=== PATIENT | male | born 1965 | race Caucasian/White ===

== ENCOUNTER 2021-07-10 19:33 | Inpatient (IN) ==
[2021-07-10] MEDS ORDERED: ACETAMINOPHEN 325 MG TABLET PO PRN (20:52)
[2021-07-10] MEDS ORDERED: GLUCAGON 1 MG VIAL IM PRN (20:52)
[2021-07-10] MEDS ORDERED: ASPIRIN CHEW 81 MG TABLET PO STA (20:57)
[2021-07-10] MEDS ORDERED: DEXTROSE 10% 250 ML BAG IV PRN (21:01)
[2021-07-10] MEDS: INSULIN REGULAR 100 UNIT/ML SUBCUT SCH (22:42)
[2021-07-10] MEDS: ENOXAPARIN 100 MG/ML SYRINGE SUBCUT SCH (23:19)
[2021-07-10] MEDS: NITROGLYCERIN 2% OINT 1 INCH/GM PACK TOP SCH (23:20)
[2021-07-11 02:35] LABS: Basophils % 0.2 % (0.0-0.8); Hematocrit 44.8 VOL% (42.0-52.0); Hemoglobin 15.1 GM/DL (14.0-18.0); Immature Granulocytes % 0.9 %; Immature Granulocytes Absolute 0.11 #; Mean Corpuscular HGB Conc 33.7 GM/DL (32-36); Mean Corpuscular Volume 86.5 FL (87-102); Mean Platelet Volume 9.3 FL (9.6-12.0); Monocytes % 5.9 % (1.7-12.7); Platelet Count 232 T/CUMM (130-400); Red Blood Count 5.18 MC/CUMM (3.8-5.5); Red Cell Distribution Width 12.7 % (9.3-17.3); White Blood Count 12.2 T/CUMM (4-12)
[2021-07-11 02:51] LABS: Albumin 2.9 G/DL (3.4-5.0); Calcium 8.5 MG/DL (8.5-10.1); Osmolality,Calculated 286.1 MOS/KG (273-304); Risk Ratio 4.34; Total Protein 6.7 G/DL (6.4-8.2); VLDL Cholesterol 42.2 MG/DL
[2021-07-11] MEDS: NITROGLYCERIN 2% OINT 1 INCH/GM PACK TOP SCH (05:49)
[2021-07-11] MEDS: METOPROLOL TARTRATE 25 MG TABLET PO SCH ×3 (07:03→23:02)
[2021-07-11 08:25] LABS: CKMB % 5.2 %; High Sensitive Troponin I* 6712.2 ng/L (0-78)
[2021-07-11] MEDS: INSULIN REGULAR 100 UNIT/ML SUBCUT SCH ×4 (08:57→23:02)
[2021-07-11] MEDS ORDERED: NITROGLYCERIN DRIP 50 MG/250 ML BOTTLE IV ONE (09:38)
[2021-07-11] MEDS ORDERED: LIDOCAINE 1% 20 ML VIAL ONE (09:38)
[2021-07-11] MEDS ORDERED: HEPARIN/NACL 0.9% 2 UNITS/ML 2,000 UNIT/1,000 ML BAG IV ONE (09:38)
[2021-07-11] MEDS ORDERED: VERAPAMIL 5 MG/2 ML VIAL ONE (09:39)
[2021-07-11] MEDS ORDERED: diphenhydrAMINE CAP 50 MG CAPSULE PO ONE (09:53)
[2021-07-11] MEDS ORDERED: DIAZEPAM 5 MG TABLET PO ONE (09:53)
[2021-07-11] MEDS ORDERED: diphenhydrAMINE CAP 50 MG CAPSULE ONE (09:54)
[2021-07-11] MEDS: ENOXAPARIN 100 MG/ML SYRINGE SUBCUT SCH (10:11)
[2021-07-11] MEDS ORDERED: MIDAZOLAM 2 MG/2 ML VIAL ONE (10:22)
[2021-07-11] MEDS ORDERED: fentaNYL 100 MCG/2 ML VIAL ONE (10:22)
[2021-07-11] MEDS ORDERED: ONDANSETRON 4 MG/2 ML VIAL IV PRN (10:56)
[2021-07-11] MEDS ORDERED: DEXTROSE 10% 250 ML BAG IV PRN (10:56)
[2021-07-11] MEDS ORDERED: NITROGLYCERIN DRIP 50 MG/250 ML BOTTLE IV PRN (11:03)
[2021-07-11] MEDS: SODIUM CHLORIDE 0.9% 1,000 ML IV SCH ×2 (11:57→18:33)
[2021-07-11] MEDS ORDERED: ZALEPLON 5 MG CAPSULE PO PRN (19:40)
[2021-07-11] MEDS ORDERED: CLORAZEPATE 3.75 MG TABLET PO PRN (19:41)
[2021-07-11] MEDS ORDERED: ROSUVASTATIN 20 MG TABLET PO SCH (21:00)
[2021-07-11] MEDS: HEPARIN DRIP 25,000 UNITS/500 ML PREMIX IV SCH (22:49)
[2021-07-11] MEDS: ROSUVASTATIN 20 MG TABLET PO SCH (23:01)
[2021-07-11] MEDS: ASCORBIC ACID 500 MG TABLET PO SCH (23:01)
[2021-07-12] MEDS: SODIUM CHLORIDE 0.9% 1,000 ML IV SCH (04:27)
[2021-07-12 06:50] LABS: Basophils % 0.3 % (0.0-0.8); Eosinophils % 0.3 % (0.00-10.9); Hematocrit 41.1 VOL% (42.0-52.0); Hemoglobin 13.8 GM/DL (14.0-18.0); Immature Granulocytes % 0.8 %; Immature Granulocytes Absolute 0.08 #; Lymphocytes % 20.4 % (21.2-54.2); Mean Corpuscular HGB Conc 33.6 GM/DL (32-36); Mean Corpuscular Volume 87.1 FL (87-102); Monocytes % 9.9 % (1.7-12.7); Neutrophils % 68.3 % (38.7-73.9); Platelet Count 185 T/CUMM (130-400); Red Blood Count 4.72 MC/CUMM (3.8-5.5); Red Cell Distribution Width 13.2 % (9.3-17.3); White Blood Count 9.8 T/CUMM (4-12)
[2021-07-12 07:20] LABS: Calcium 7.9 MG/DL (8.5-10.1); Osmolality,Calculated 285.3 MOS/KG (273-304); Potassium 3.2 MMOL/L (3.5-5.1)
[2021-07-12] MEDS: INSULIN REGULAR 100 UNIT/ML SUBCUT SCH ×4 (08:21→20:38)
[2021-07-12] MEDS: ASPIRIN EC 81 MG TABLET PO SCH (08:25)
[2021-07-12] MEDS: ASCORBIC ACID 500 MG TABLET PO SCH ×2 (08:26→20:38)
[2021-07-12] MEDS: DAPAGLIFLOZIN 10 MG TABLET PO SCH (08:26)
[2021-07-12] MEDS: METOPROLOL TARTRATE 25 MG TABLET PO SCH ×2 (08:27→20:38)
[2021-07-12] MEDS ORDERED: POTASSIUM CHLORIDE 20 MEQ TABLET PO ONE (08:50)
[2021-07-12] MEDS ORDERED: HEPARIN 5,000 UNIT/1 ML VIAL IV ONE (13:19)
[2021-07-12] MEDS: HEPARIN DRIP 25,000 UNITS/500 ML PREMIX IV SCH ×2 (17:52→19:45)
[2021-07-12] MEDS: ROSUVASTATIN 20 MG TABLET PO SCH (20:38)
[2021-07-13 05:59] LABS: Basophils # 0.1 10*3/uL (0.0-0.2); Basophils % 0.5 % (0.0-0.8); Eosinophils % 0.4 % (0.00-10.9); Hematocrit 43.3 VOL% (42.0-52.0); Hemoglobin 14.1 GM/DL (14.0-18.0); Immature Granulocytes % 0.9 %; Immature Granulocytes Absolute 0.08 #; Lymphocytes # 1.9 10*3/uL (1.4-4.0); Lymphocytes % 21.1 % (21.2-54.2); Mean Corpuscular HGB Conc 32.6 GM/DL (32-36); Mean Corpuscular Volume 88.2 FL (87-102); Mean Platelet Volume 9.4 FL (9.6-12.0); Neutrophils % 67.1 % (38.7-73.9); Platelet Count 188 T/CUMM (130-400); Red Blood Count 4.91 MC/CUMM (3.8-5.5); Red Cell Distribution Width 13.1 % (9.3-17.3); White Blood Count 9.1 T/CUMM (4-12)
[2021-07-13 06:30] LABS: Calcium 8.2 MG/DL (8.5-10.1); Osmolality,Calculated 283.3 MOS/KG (273-304); Potassium 3.6 MMOL/L (3.5-5.1)
[2021-07-13 06:58] LABS: Albumin 2.4 G/DL (3.4-5.0); Bilirubin,Total 1.1 MG/DL (0.20-1.00); Calcium 8.2 MG/DL (8.5-10.1); Osmolality,Calculated 283.3 MOS/KG (273-304); Potassium 3.5 MMOL/L (3.5-5.1); Total Protein 6.2 G/DL (6.4-8.2)
[2021-07-13 08:28] LABS: ABG Base Excess -1.7 MMOL/L (-2.5-2.5); ABG HCO3 22.9 MMOL/L (20-26); ABG Oxygen Saturation 97.2 % (95-100); ABG PCO2 33.7 MM HG (35-48); ABG PO2 88.4 MM HG (80-95); ABG TCO2 18.6 MMOL/L (23-27); Allen Test Positive; Pt O2 Delivery Device Room Air
[2021-07-13] MEDS ORDERED: POTASSIUM CHLORIDE 20 MEQ TABLET PO ONE (08:50)
[2021-07-13] MEDS: METOPROLOL TARTRATE 25 MG TABLET PO SCH ×2 (08:50→21:47)
[2021-07-13] MEDS: ASCORBIC ACID 500 MG TABLET PO SCH ×2 (08:50→21:47)
[2021-07-13] MEDS: INSULIN REGULAR 100 UNIT/ML SUBCUT SCH ×4 (08:51→21:46)
[2021-07-13] MEDS: DAPAGLIFLOZIN 10 MG TABLET PO SCH (08:51)
[2021-07-13] MEDS: ASPIRIN EC 81 MG TABLET PO SCH (08:51)
[2021-07-13] MEDS: CHLORHEXIDINE 4% SOLN 118 ML BOTTLE TOP SCH ×3 (08:52→21:57)
[2021-07-13] MEDS: CHLORHEXIDINE 0.12% ORAL RINSE 60 ML BOTTLE SWISH/SPIT SCH ×2 (08:58→21:46)
[2021-07-13] MEDS: SODIUM CHLORIDE 0.9% 1,000 ML IV SCH ×2 (12:45→12:50)
[2021-07-13] MEDS: HEPARIN DRIP 25,000 UNITS/500 ML PREMIX IV SCH (15:30)
[2021-07-13] MEDS: ROSUVASTATIN 20 MG TABLET PO SCH (21:46)
[2021-07-14] MEDS ORDERED: VANCOMYCIN 500 MG VIAL ONE (04:16)
[2021-07-14] MEDS ORDERED: PAPAVERINE 60 MG/2 ML VIAL ONE (04:16)
[2021-07-14] MEDS ORDERED: VANCOMYCIN 1,000 MG VIAL ONE (04:16)
[2021-07-14] MEDS: HEPARIN DRIP 25,000 UNITS/500 ML PREMIX IV SCH (04:33)
[2021-07-14] MEDS: VANCOMYCIN INJ 1,000 MG in SODIUM CHLORIDE 0.9% 250 ML IV ONE ×2 (05:16→10:08)
[2021-07-14] MEDS ORDERED: LACTATED RINGERS 1,000 ML IV ONE (06:01)
[2021-07-14] MEDS ORDERED: MIDAZOLAM 10 MG/2 ML VIAL ONE ×2 (06:01→08:11)
[2021-07-14] MEDS ORDERED: SODIUM CHLORIDE 0.9% 100 ML IV ONE (06:01)
[2021-07-14] MEDS ORDERED: SODIUM CHLORIDE 0.9% 250 ML IV ONE (06:01)
[2021-07-14] MEDS ORDERED: CALCIUM CHLORIDE 1,000 MG/10 ML VIAL IV ONE (06:01)
[2021-07-14] MEDS ORDERED: SODIUM CHLORIDE 0.9% 1,000 ML IV ONE (06:01)
[2021-07-14] MEDS ORDERED: VECURONIUM 10 MG VIAL IV ONE ×3 (06:01→08:12)
[2021-07-14] MEDS ORDERED: LIDOCAINE 2% 5 ML VIAL ONE ×2 (06:01→11:21)
[2021-07-14] MEDS ORDERED: ETOMIDATE 40 MG/20 ML VIAL IV ONE (06:01)
[2021-07-14] MEDS ORDERED: SUFentanil 250 MCG/5 ML AMP ONE (06:02)
[2021-07-14] MEDS ORDERED: AMINOCAPROIC ACID 5,000 MG/20 ML VIAL ONE (06:02)
[2021-07-14] MEDS ORDERED: PHENYLEPHRINE 10 MG/1 ML VIAL IV ONE ×2 (06:05→09:54)
[2021-07-14] MEDS ORDERED: ePHEDrine 50 MG/ML VIAL ONE (06:42)
[2021-07-14] MEDS ORDERED: LIDOCAINE 2% TOP JELLY 20 ML VIAL INTRAURETH ONE ×2 (07:15→07:24)
[2021-07-14 07:47] LABS: ABG Base Excess -4.2 MMOL/L (-2.5-2.5); ABG Oxygen Saturation 99.6 % (95-100); ABG PCO2 40.2 MM HG (35-48); ABG PH 7.336 (7.35-7.45); ABG TCO2 18.3 MMOL/L (23-27); Glucose Heart Surgery 157 MG/DL (74-106); Hematocrit Heart Surgery 47.2 PERCENT (42-52); Hemoglobin Heart Surgery 15.4 G/DL (14.0-18.0); Ionized Calcium Arterial 1.16 MMOL/L (1.21-1.46); PCO2 Patient Temp Arterial 40.2 MMHG; PH Patient Temp Arterial 7.336; Patient Temperature 37 CELCIUS; Potassium Heart/CVR 3.7 MMOL/L (3.5-5.1); Sodium Heart/CVR 140 MMOL/L (135-145)
[2021-07-14 08:35] LABS: Bilirubin,Urine Negative (Negative); Blood, Urine Negative (Negative); Glucose,Urine (UA) >=500 mg/dL (Negative); Ketones,Urine 20 mg/dL (Negative); Mucus,Urine Few /LPF (Occasional); Nitrite,Urine Negative (Negative); Protein,Urine Negative; RBC,Urine 2 /HPF (0-4); Squamous Epithelial Cell,Urine Occasional /HPF (0-10); Urine Appearance CLEAR (Clear); Urine Color Yellow (Yellow); Urine Specific Gravity 1.026 (1.001-1.035); Urine Urobilinogen < 2.0 EU/DL (<2.0)
[2021-07-14 09:28] LABS: Hematocrit Heart Surgery 31.9 PERCENT (42-52); Hemoglobin Heart Surgery 10.3 G/DL (14.0-18.0); PCO2 Patient Temp Venous 34.6 MM HG; PH Patient Temp Venous 7.379; PO2 Patient Temp Venous 36.4 MM HG; Potassium Heart/CVR 4.2 MMOL/L (3.5-5.1); VBG Base Excess -4.1 MEQ/L (0-4); VBG HCO3 20.7 MEQ/L (24-28); VBG Oxygen Saturation 77.8 %; VBG PCO2 40.1 MMHG (41-51); VBG PH 7.337; VBG PO2 44.9 MMHG (17-40); VBG Total CO2 19.6 MMOL/L
[2021-07-14] MEDS ORDERED: HEPARIN/NACL 0.9% 2 UNITS/ML 1,000 UNIT/500 ML BAG IV ONE (09:44)
[2021-07-14 09:58] LABS: Hematocrit Heart Surgery 34.6 PERCENT (42-52); Hemoglobin Heart Surgery 11.2 G/DL (14.0-18.0); PCO2 Patient Temp Venous 33.1 MM HG; PH Patient Temp Venous 7.378; PO2 Patient Temp Venous 37.5 MM HG; Potassium Heart/CVR 4.2 MMOL/L (3.5-5.1); VBG Oxygen Saturation 79.3 %; VBG PCO2 38.2 MMHG (41-51); VBG PH 7.335; VBG PO2 46.2 MMHG (17-40); VBG Total CO2 18.5 MMOL/L
[2021-07-14] MEDS ORDERED: POTASSIUM CHLORIDE RIDER 20 MEQ/100 ML PREMIX IV ONE (10:00)
[2021-07-14] MEDS ORDERED: NITROPRUSSIDE 50 MG/2 ML VIAL ONE (10:00)
[2021-07-14] MEDS ORDERED: SODIUM BICARBONATE 50 MEQ/50 ML VIAL IV ONE ×2 (10:00→11:23)
[2021-07-14] MEDS ORDERED: PHENYLEPHRINE DRIP 40 MG/250 ML PREMIX IV ONE (10:01)
[2021-07-14] MEDS ORDERED: CALCIUM CHLORIDE 1,000 MG/10 ML SYRINGE IV ONE (10:01)
[2021-07-14] MEDS ORDERED: ALBUMIN 5% 12.5 GM/250 ML VIAL IV ONE ×2 (10:03→10:04)
[2021-07-14] MEDS ORDERED: LIDOCAINE 100 MG/5 ML SYRINGE ONE (10:03)
[2021-07-14] MEDS ORDERED: ATROPINE 1 MG/10 ML SYRINGE ONE (10:03)
[2021-07-14] MEDS ORDERED: EPINEPHrine 1 MG/10 ML SYRINGE ONE (10:04)
[2021-07-14 10:29] LABS: Hematocrit Heart Surgery 36.1 PERCENT (42-52); Hemoglobin Heart Surgery 11.7 G/DL (14.0-18.0); PCO2 Patient Temp Venous 37.2 MM HG; PH Patient Temp Venous 7.323; PO2 Patient Temp Venous 43.3 MM HG; Potassium Heart/CVR 4.5 MMOL/L (3.5-5.1); VBG Base Excess -6.2 MEQ/L (0-4); VBG Oxygen Saturation 75.5 %; VBG PCO2 37.2 MMHG (41-51); VBG PH 7.323; VBG PO2 43.3 MMHG (17-40); VBG Total CO2 17.4 MMOL/L
[2021-07-14] MEDS ORDERED: MINERAL OIL/PETROLATUM OPH OINT 3.5 GM TUBE ONE (10:41)
[2021-07-14] MEDS ORDERED: SEVOFLURANE 1 UNIT/15 MINUTE INH ONE (10:42)
[2021-07-14 11:13] LABS: ABG Base Excess -6.6 MMOL/L (-2.5-2.5); ABG HCO3 19.1 MMOL/L (20-26); ABG Oxygen Saturation 99.5 % (95-100); ABG PCO2 35.9 MM HG (35-48); ABG PH 7.326 (7.35-7.45); ABG TCO2 16.8 MMOL/L (23-27); Glucose Heart Surgery 280 MG/DL (74-106); Hematocrit Heart Surgery 36.6 PERCENT (42-52); Hemoglobin Heart Surgery 11.9 G/DL (14.0-18.0); Ionized Calcium Arterial 1.22 MMOL/L (1.21-1.46); PCO2 Patient Temp Arterial 35.9 MMHG; PH Patient Temp Arterial 7.326; Patient Temperature 37 CELCIUS; Potassium Heart/CVR 4.4 MMOL/L (3.5-5.1); Sodium Heart/CVR 137 MMOL/L (135-145)
[2021-07-14] MEDS ORDERED: ALBUMIN 25% 25 GM/100 ML VIAL IV ONE (11:21)
[2021-07-14] MEDS ORDERED: MAGNESIUM SULFATE 5 GM/10 ML VIAL IV ONE (11:21)
[2021-07-14] MEDS ORDERED: DEXTROSE 5% KCL 20 MEQ 20 MEQ/1,000 ML BAG IV ONE (11:22)
[2021-07-14] MEDS ORDERED: MANNITOL 12.5 GM/50 ML VIAL IV ONE (11:22)
[2021-07-14] MEDS ORDERED: HEPARIN 10,000 UNIT/10 ML VIAL ONE (11:22)
[2021-07-14] MEDS ORDERED: PROTAMINE SULFATE 250 MG/25 ML VIAL IV ONE (11:22)
[2021-07-14] MEDS ORDERED: methylPREDNISolone SOD SUC 1,000 MG/8 ML VIAL ONE (11:22)
[2021-07-14] MEDS ORDERED: MANNITOL 100 GM/500 ML BAG IV ONE (11:22)
[2021-07-14] MEDS ORDERED: PROTAMINE SULFATE 50 MG/5 ML VIAL IV ONE (11:23)
[2021-07-14] MEDS ORDERED: FUROSEMIDE 20 MG/2 ML VIAL ONE (11:23)
[2021-07-14] MEDS ORDERED: LACTATED RINGERS 250 ML IV PRN (11:59)
[2021-07-14] MEDS ORDERED: DEXTROSE 50% 25 GM/50 ML SYRINGE IV PRN ×2 (11:59)
[2021-07-14] MEDS ORDERED: INSULIN REGULAR 100 UNIT/ML IV PRN (11:59)
[2021-07-14] MEDS ORDERED: CALCIUM CHLORIDE 1,000 MG/10 ML SYRINGE IV PRN (11:59)
[2021-07-14] MEDS ORDERED: ACETAMINOPHEN 650 MG SUPP RECTAL PRN (11:59)
[2021-07-14] MEDS ORDERED: SODIUM CHLORIDE 0.45% 1,000 ML IV SCH ×2 (11:59)
[2021-07-14] MEDS ORDERED: VECURONIUM 10 MG VIAL IV PRN ×2 (11:59)
[2021-07-14] MEDS ORDERED: INSULIN REGULAR 100 UNIT/ML IV ONE (11:59)
[2021-07-14] MEDS ORDERED: MIDAZOLAM 2 MG/2 ML VIAL IV PRN (11:59)
[2021-07-14] MEDS ORDERED: POTASSIUM CHLORIDE RIDER 20 MEQ/100 ML PREMIX IV PRN (11:59)
[2021-07-14] MEDS ORDERED: ONDANSETRON 4 MG/2 ML VIAL IV PRN (11:59)
[2021-07-14] MEDS ORDERED: MORPHINE 10 MG/1 ML VIAL IV PRN (11:59)
[2021-07-14] MEDS ORDERED: PHENYLEPHRINE DRIP 40 MG/250 ML PREMIX IV PRN (11:59)
[2021-07-14] MEDS ORDERED: INSULIN REGULAR DRIP 100 ML IV SCH (11:59)
[2021-07-14] MEDS ORDERED: CHLORHEXIDINE 4% SOLN 118 ML BOTTLE TOP PRN (11:59)
[2021-07-14] MEDS ORDERED: NITROPRUSSIDE 100 MG in DEXTROSE 5% 250 ML IV PRN (11:59)
[2021-07-14] MEDS ORDERED: MAGNESIUM SULF RIDER 2 GM/50 ML PREMIX IV PRN (11:59)
[2021-07-14] MEDS ORDERED: MIDAZOLAM 10 MG/2 ML VIAL IV PRN (11:59)
[2021-07-14] MEDS ORDERED: MAGNESIUM SULF RIDER 4 GM/100 ML PREMIX IV PRN (11:59)
[2021-07-14] MEDS ORDERED: POTASSIUM CHLORIDE RIDER 10 MEQ/100 ML PREMIX IV PRN (11:59)
[2021-07-14 12:32] LABS: ABG Base Excess -6.3 MMOL/L (-2.5-2.5); ABG HCO3 19.3 MMOL/L (20-26); ABG PCO2 40.8 MM HG (35-48); ABG PH 7.297 (7.35-7.45); ABG TCO2 17.6 MMOL/L (23-27); Glucose Heart Surgery 260 MG/DL (74-106); Hematocrit Heart Surgery 41.5 PERCENT (42-52); Hemoglobin Heart Surgery 13.5 G/DL (14.0-18.0); Potassium Heart/CVR 4.2 MMOL/L (3.5-5.1)
[2021-07-14 12:37] LABS: Basophils % 0.3 % (0.0-0.8); Eosinophils % 0.1 % (0.00-10.9); Hemoglobin 13.5 GM/DL (14.0-18.0); Immature Granulocytes % 1.1 %; Immature Granulocytes Absolute 0.11 #; Lymphocytes # 0.7 10*3/uL (1.4-4.0); Lymphocytes % 7.1 % (21.2-54.2); Mean Corpuscular HGB Conc 32.9 GM/DL (32-36); Mean Corpuscular Volume 87.8 FL (87-102); Mean Platelet Volume 9.4 FL (9.6-12.0); Monocytes % 6.3 % (1.7-12.7); Neutrophils % 85.1 % (38.7-73.9); Platelet Count 191 T/CUMM (130-400); Red Blood Count 4.67 MC/CUMM (3.8-5.5); White Blood Count 9.6 T/CUMM (4-12)
[2021-07-14 12:46] LABS: INR 1.1; PT Patient Result 12.1 SECS (10.5-12.0); Partial Thromboplastin Time 27.1 SECS (23.8-32.1)
[2021-07-14 12:58] LABS: CKMB % 5.2 %; High Sensitive Troponin I* 6491.7 ng/L (0-78)
[2021-07-14] MEDS: LACTATED RINGERS 1,000 ML IV PRN ×3 (13:00→18:00)
[2021-07-14 13:03] LABS: Bilirubin,Total 1.8 MG/DL (0.20-1.00); Osmolality,Calculated 289.3 MOS/KG (273-304); Potassium 4.2 MMOL/L (3.5-5.1); Total Protein 6.2 G/DL (6.4-8.2)
[2021-07-14 13:15] LABS: Band Neutrophils 6 % (0-10); Lymphocytes 7 % (20-55); Platelet Estimate Adequate; Segmented Neutrophils 82 % (50-85); Total Cells Counted 100
[2021-07-14] MEDS: KETOROLAC 30 MG/1 ML VIAL IV SCH ×2 (14:15→22:21)
[2021-07-14] MEDS: METOPROLOL TARTRATE 25 MG TABLET PO SCH ×2 (14:15→19:32)
[2021-07-14] MEDS: ALBUMIN 5% 12.5 GM/250 ML VIAL IV PRN ×2 (15:00→16:30)
[2021-07-14 15:46] LABS: ABG Base Excess -3.5 MMOL/L (-2.5-2.5); ABG HCO3 21.5 MMOL/L (20-26); ABG Oxygen Saturation 97.3 % (95-100); ABG PCO2 40.3 MM HG (35-48); ABG PH 7.345 (7.35-7.45); ABG TCO2 19.1 MMOL/L (23-27); Glucose Heart Surgery 174 MG/DL (74-106); Hematocrit Heart Surgery 43.1 PERCENT (42-52); Hemoglobin Heart Surgery 14.1 G/DL (14.0-18.0); Potassium Heart/CVR 3.7 MMOL/L (3.5-5.1)
[2021-07-14 17:05] LABS: ABG Base Excess -2.3 MMOL/L (-2.5-2.5); ABG HCO3 22.5 MMOL/L (20-26); ABG Oxygen Saturation 97.8 % (95-100); ABG PCO2 40.8 MM HG (35-48); ABG PH 7.358 (7.35-7.45); ABG TCO2 20.6 MMOL/L (23-27); Glucose Heart Surgery 156 MG/DL (74-106); Hematocrit Heart Surgery 35.1 PERCENT (42-52); Hemoglobin Heart Surgery 11.4 G/DL (14.0-18.0); Potassium Heart/CVR 3.8 MMOL/L (3.5-5.1)
[2021-07-14] MEDS ORDERED: ESMOLOL 100 MG/10 ML VIAL IV ONE (17:13)
[2021-07-14] MEDS: INSULIN REGULAR 100 UNIT/ML SUBCUT SCH ×2 (19:29→19:31)
[2021-07-14] MEDS: ASCORBIC ACID 500 MG TABLET PO SCH (19:32)
[2021-07-14] MEDS: ASPIRIN EC 81 MG TABLET PO SCH (19:32)
[2021-07-14] MEDS: CHLORHEXIDINE 0.12% ORAL RINSE 60 ML BOTTLE SWISH/SPIT SCH (19:32)
[2021-07-14] MEDS: DAPAGLIFLOZIN 10 MG TABLET PO SCH (19:32)
[2021-07-14 20:03] LABS: ABG Base Excess -1.1 MMOL/L (-2.5-2.5); ABG HCO3 23.5 MMOL/L (20-26); ABG Oxygen Saturation 97.9 % (95-100); ABG PCO2 39.6 MM HG (35-48); ABG PH 7.385 (7.35-7.45); ABG TCO2 20.9 MMOL/L (23-27); Glucose Heart Surgery 135 MG/DL (74-106); Hemoglobin Heart Surgery 12.7 G/DL (14.0-18.0); Potassium Heart/CVR 3.9 MMOL/L (3.5-5.1)
[2021-07-14 20:23] LABS: CKMB % 5.7 %
[2021-07-14 20:24] LABS: High Sensitive Troponin I* 10581.4 ng/L (0-78)
[2021-07-14] MEDS ORDERED: CHLORHEXIDINE 0.12% ORAL RINSE 60 ML BOTTLE SWISH/SPIT SCH (21:00)
[2021-07-14 22:29] LABS: ABG Base Excess -1.4 MMOL/L (-2.5-2.5); ABG HCO3 23.2 MMOL/L (20-26); ABG Oxygen Saturation 97.7 % (95-100); ABG PCO2 36.7 MM HG (35-48); ABG PH 7.403 (7.35-7.45); ABG PO2 99.6 MM HG (80-95); ABG TCO2 20.4 MMOL/L (23-27); Glucose Heart Surgery 149 MG/DL (74-106); Hematocrit Heart Surgery 35.9 PERCENT (42-52); Hemoglobin Heart Surgery 11.7 G/DL (14.0-18.0); Potassium Heart/CVR 3.9 MMOL/L (3.5-5.1)
[2021-07-14] MEDS: VANCOMYCIN INJ 1,000 MG in SODIUM CHLORIDE 0.9% 250 ML IV SCH (23:57)
[2021-07-15] MEDS: KETOROLAC 30 MG/1 ML VIAL IV SCH ×5 (02:43→20:41)
[2021-07-15 04:36] LABS: ABG Base Excess -3.1 MMOL/L (-2.5-2.5); ABG HCO3 21.8 MMOL/L (20-26); ABG Oxygen Saturation 97.6 % (95-100); ABG PCO2 34.3 MM HG (35-48); ABG PH 7.397 (7.35-7.45); ABG PO2 96.5 MM HG (80-95); ABG TCO2 18.9 MMOL/L (23-27); Glucose Heart Surgery 159 MG/DL (74-106); Hemoglobin Heart Surgery 11.4 G/DL (14.0-18.0); Potassium Heart/CVR 4.1 MMOL/L (3.5-5.1)
[2021-07-15 04:43] LABS: Basophils % 0.1 % (0.0-0.8); Hematocrit 35.2 VOL% (42.0-52.0); Hemoglobin 11.5 GM/DL (14.0-18.0); Immature Granulocytes % 0.5 %; Immature Granulocytes Absolute 0.06 #; Lymphocytes # 0.5 10*3/uL (1.4-4.0); Lymphocytes % 3.7 % (21.2-54.2); Mean Corpuscular HGB Conc 32.7 GM/DL (32-36); Mean Corpuscular Volume 88.4 FL (87-102); Mean Platelet Volume 9.8 FL (9.6-12.0); Neutrophils % 88.7 % (38.7-73.9); Platelet Count 190 T/CUMM (130-400); Red Blood Count 3.98 MC/CUMM (3.8-5.5); Red Cell Distribution Width 13.2 % (9.3-17.3); White Blood Count 12.1 T/CUMM (4-12)
[2021-07-15 05:03] LABS: Band Neutrophils 1 % (0-10); Hypochromia Slight; Lymphocytes 6 % (20-55); Microcytosis Slight; Platelet Estimate Adequate; Segmented Neutrophils 87 % (50-85); Total Cells Counted 100
[2021-07-15 05:11] LABS: CKMB % 6.3 %
[2021-07-15 05:15] LABS: Albumin 2.9 G/DL (3.4-5.0); Bilirubin,Direct 0.26 MG/DL (0.0-0.20); Bilirubin,Total 1.2 MG/DL (0.20-1.00); Calcium 8.2 MG/DL (8.5-10.1); Potassium 4.1 MMOL/L (3.5-5.1); Total Protein 6.2 G/DL (6.4-8.2)
[2021-07-15 05:16] LABS: High Sensitive Troponin I* 15126.8 ng/L (0-78)
[2021-07-15] MEDS: PANTOPRAZOLE 40 MG TABLET PO SCH (08:40)
[2021-07-15] MEDS: ASPIRIN EC 81 MG TABLET PO SCH (08:40)
[2021-07-15] MEDS ORDERED: DEXTROSE 50% 25 GM/50 ML VIAL IV PRN (08:41)
[2021-07-15] MEDS ORDERED: MAGNESIUM HYDROXIDE SUSP 30 ML UDCUP PO PRN (08:41)
[2021-07-15] MEDS ORDERED: ALUMINUM/MAGNES/SIMETH MAX STR 30 ML UDCUP PO PRN (08:41)
[2021-07-15] MEDS ORDERED: ONDANSETRON 4 MG/2 ML VIAL IV PRN (08:41)
[2021-07-15] MEDS ORDERED: MAGNESIUM SULF RIDER 2 GM/50 ML PREMIX IV PRN (08:41)
[2021-07-15] MEDS ORDERED: POTASSIUM CHLORIDE 20 MEQ TABLET PO PRN (08:41)
[2021-07-15] MEDS ORDERED: GLUCAGON 1 MG VIAL IM PRN ×2 (08:41)
[2021-07-15] MEDS ORDERED: DEXTROSE 50% 25 GM/50 ML SYRINGE IV PRN (08:41)
[2021-07-15] MEDS ORDERED: MAGNESIUM SULF RIDER 4 GM/100 ML PREMIX IV PRN (08:41)
[2021-07-15] MEDS ORDERED: ACETAMINOPHEN 325 MG TABLET PO PRN (08:41)
[2021-07-15] MEDS ORDERED: SODIUM CHLOR 0.45% KCL 20 MEQ 20 MEQ/1,000 ML BAG IV SCH (09:00)
[2021-07-15] MEDS: DOCUSATE SODIUM 100 MG CAPSULE PO SCH (10:05)
[2021-07-15] MEDS: FERROUS SULFATE 325 MG TABLET PO SCH (10:14)
[2021-07-15] MEDS: CHLORHEXIDINE 0.12% ORAL RINSE 60 ML BOTTLE SWISH/SPIT SCH ×2 (10:14→20:42)
[2021-07-15] MEDS: ASCORBIC ACID 500 MG TABLET PO SCH ×2 (10:14→20:41)
[2021-07-15] MEDS: oxyCODONE/ACETAMINOPHEN 5-325 MG TABLET PO PRN (11:41)
[2021-07-15 12:47] LABS: CKMB % 5.2 %
[2021-07-15 12:50] LABS: High Sensitive Troponin I* 11152.8 ng/L (0-78)
[2021-07-15] MEDS: METOPROLOL TARTRATE 25 MG TABLET PO SCH ×2 (13:22→20:41)
[2021-07-15] MEDS: VANCOMYCIN INJ 1,000 MG in SODIUM CHLORIDE 0.9% 250 ML IV SCH ×2 (14:43→23:09)
[2021-07-16] MEDS: KETOROLAC 30 MG/1 ML VIAL IV SCH ×4 (01:56→21:11)
[2021-07-16 05:35] LABS: Basophils % 0.1 % (0.0-0.8); Hematocrit 34.7 VOL% (42.0-52.0); Hemoglobin 11.2 GM/DL (14.0-18.0); Immature Granulocytes % 1.4 %; Immature Granulocytes Absolute 0.19 #; Lymphocytes # 1.1 10*3/uL (1.4-4.0); Lymphocytes % 8.3 % (21.2-54.2); Mean Corpuscular HGB Conc 32.3 GM/DL (32-36); Mean Corpuscular Volume 90.1 FL (87-102); Mean Platelet Volume 10.5 FL (9.6-12.0); Monocytes % 10.4 % (1.7-12.7); Neutrophils % 79.8 % (38.7-73.9); Platelet Count 216 T/CUMM (130-400); Red Blood Count 3.85 MC/CUMM (3.8-5.5); Red Cell Distribution Width 13.2 % (9.3-17.3); White Blood Count 13.8 T/CUMM (4-12)
[2021-07-16 05:46] LABS: Albumin 2.7 G/DL (3.4-5.0); Bilirubin,Direct 0.24 MG/DL (0.0-0.20); Bilirubin,Indirect 0.6 MG/DL (0.0-1.0); Bilirubin,Total 0.8 MG/DL (0.20-1.00); CKMB % 3.4 %; Calcium 8.4 MG/DL (8.5-10.1); Osmolality,Calculated 286.7 MOS/KG (273-304); Total Protein 6.3 G/DL (6.4-8.2)
[2021-07-16 05:48] LABS: High Sensitive Troponin I* 9121.8 ng/L (0-78)
[2021-07-16 05:59] LABS: Band Neutrophils 1 % (0-10); Lymphocytes 6 % (20-55); Platelet Estimate Normal; Segmented Neutrophils 85 % (50-85); Total Cells Counted 100
[2021-07-16] MEDS ORDERED: FUROSEMIDE 40 MG/4 ML VIAL IV ONE (06:00)
[2021-07-16] MEDS: ASCORBIC ACID 500 MG TABLET PO SCH ×2 (09:06→21:10)
[2021-07-16] MEDS: ASPIRIN EC 81 MG TABLET PO SCH (09:07)
[2021-07-16] MEDS: PANTOPRAZOLE 40 MG TABLET PO SCH (09:07)
[2021-07-16] MEDS: DOCUSATE SODIUM 100 MG CAPSULE PO SCH (09:07)
[2021-07-16] MEDS: metFORMIN 500 MG TABLET PO SCH ×2 (09:07→21:10)
[2021-07-16] MEDS: CHLORHEXIDINE 0.12% ORAL RINSE 60 ML BOTTLE SWISH/SPIT SCH ×2 (09:08→21:11)
[2021-07-16] MEDS: METOPROLOL TARTRATE 25 MG TABLET PO SCH (09:08)
[2021-07-16] MEDS: FERROUS SULFATE 325 MG TABLET PO SCH (09:11)
[2021-07-16] MEDS ORDERED: INSULIN LISPRO 100 UNIT/ML ONE (12:14)
[2021-07-16] MEDS: INSULIN LISPRO 100 UNIT/ML SUBCUT SCH ×3 (12:26→21:11)
[2021-07-16] MEDS: VANCOMYCIN INJ 1,000 MG in SODIUM CHLORIDE 0.9% 250 ML IV SCH (14:57)
[2021-07-16] MEDS: ROSUVASTATIN 10 MG TABLET PO SCH (21:10)
[2021-07-17] MEDS: KETOROLAC 30 MG/1 ML VIAL IV SCH ×4 (02:04→21:37)
[2021-07-17] MEDS: oxyCODONE/ACETAMINOPHEN 5-325 MG TABLET PO PRN (03:34)
[2021-07-17] MEDS: BENZONATATE 100 MG CAPSULE PO PRN (04:23)
[2021-07-17 06:05] LABS: Basophils % 0.2 % (0.0-0.8); Eosinophils % 0.3 % (0.00-10.9); Hematocrit 34.7 VOL% (42.0-52.0); Immature Granulocytes % 1.5 %; Immature Granulocytes Absolute 0.17 #; Lymphocytes # 1.6 10*3/uL (1.4-4.0); Lymphocytes % 14.1 % (21.2-54.2); Mean Corpuscular HGB Conc 31.7 GM/DL (32-36); Mean Corpuscular Volume 90.4 FL (87-102); Mean Platelet Volume 10.8 FL (9.6-12.0); Monocytes % 9.6 % (1.7-12.7); Neutrophils % 74.3 % (38.7-73.9); Platelet Count 197 T/CUMM (130-400); Red Blood Count 3.84 MC/CUMM (3.8-5.5); Red Cell Distribution Width 13.2 % (9.3-17.3); White Blood Count 11.5 T/CUMM (4-12)
[2021-07-17 06:36] LABS: Albumin 2.5 G/DL (3.4-5.0); Bilirubin,Direct 0.16 MG/DL (0.0-0.20); Bilirubin,Indirect 0.5 MG/DL (0.0-1.0); Bilirubin,Total 0.7 MG/DL (0.20-1.00); Calcium 8.1 MG/DL (8.5-10.1); Osmolality,Calculated 285.4 MOS/KG (273-304); Potassium 3.3 MMOL/L (3.5-5.1)
[2021-07-17 06:39] LABS: High Sensitive Troponin I* 8483.4 ng/L (0-78)
[2021-07-17 07:04] LABS: Eosinophils 1 % (0-10); Hypochromia Slight; Lymphocytes 13 % (20-55); Microcytosis Slight; Platelet Estimate Adequate; Segmented Neutrophils 77 % (50-85); Total Cells Counted 100
[2021-07-17] MEDS: VALSARTAN 80 MG TABLET PO SCH (10:25)
[2021-07-17] MEDS: ASPIRIN EC 81 MG TABLET PO SCH (10:25)
[2021-07-17] MEDS: DOCUSATE SODIUM 100 MG CAPSULE PO SCH (10:25)
[2021-07-17] MEDS: metFORMIN 500 MG TABLET PO SCH ×2 (10:26→21:37)
[2021-07-17] MEDS: FERROUS SULFATE 325 MG TABLET PO SCH (10:26)
[2021-07-17] MEDS: METOPROLOL TARTRATE 25 MG TABLET PO SCH (10:26)
[2021-07-17] MEDS: ASCORBIC ACID 500 MG TABLET PO SCH ×2 (10:27→21:37)
[2021-07-17] MEDS: CHLORHEXIDINE 0.12% ORAL RINSE 60 ML BOTTLE SWISH/SPIT SCH ×2 (10:27→21:38)
[2021-07-17] MEDS: PANTOPRAZOLE 40 MG TABLET PO SCH (10:27)
[2021-07-17] MEDS: INSULIN LISPRO 100 UNIT/ML SUBCUT SCH ×4 (10:30→21:38)
[2021-07-17] MEDS: ROSUVASTATIN 10 MG TABLET PO SCH (21:37)
[2021-07-18] MEDS: BENZONATATE 100 MG CAPSULE PO PRN ×2 (00:04→18:22)
[2021-07-18] MEDS: KETOROLAC 30 MG/1 ML VIAL IV SCH ×4 (02:00→20:36)
[2021-07-18 05:06] LABS: Basophils % 0.2 % (0.0-0.8); Eosinophils # 0.1 10*3/uL (0.0-0.87); Eosinophils % 1.3 % (0.00-10.9); Hemoglobin 10.6 GM/DL (14.0-18.0); Immature Granulocytes Absolute 0.09 #; Lymphocytes # 1.7 10*3/uL (1.4-4.0); Lymphocytes % 17.6 % (21.2-54.2); Mean Corpuscular HGB Conc 32.1 GM/DL (32-36); Mean Corpuscular Volume 89.9 FL (87-102); Mean Platelet Volume 10.3 FL (9.6-12.0); Monocytes % 8.9 % (1.7-12.7); Platelet Count 206 T/CUMM (130-400); Red Blood Count 3.67 MC/CUMM (3.8-5.5); White Blood Count 9.5 T/CUMM (4-12)
[2021-07-18 05:25] LABS: Calcium 8.2 MG/DL (8.5-10.1); Osmolality,Calculated 289.1 MOS/KG (273-304); Potassium 3.9 MMOL/L (3.5-5.1)
[2021-07-18 05:32] LABS: Hypochromia Slight; Lymphocytes 18 % (20-55); Nucleated Red Blood Cells 2 (0-5); Platelet Estimate Normal; Segmented Neutrophils 77 % (50-85); Total Cells Counted 100
[2021-07-18] MEDS: INSULIN LISPRO 100 UNIT/ML SUBCUT SCH ×4 (09:04→20:37)
[2021-07-18] MEDS: PANTOPRAZOLE 40 MG TABLET PO SCH (09:04)
[2021-07-18] MEDS: METOPROLOL TARTRATE 25 MG TABLET PO SCH (09:04)
[2021-07-18] MEDS: ASCORBIC ACID 500 MG TABLET PO SCH ×2 (09:05→20:36)
[2021-07-18] MEDS: ASPIRIN EC 81 MG TABLET PO SCH (09:05)
[2021-07-18] MEDS: DOCUSATE SODIUM 100 MG CAPSULE PO SCH (09:05)
[2021-07-18] MEDS: VALSARTAN 80 MG TABLET PO SCH (09:05)
[2021-07-18] MEDS: metFORMIN 500 MG TABLET PO SCH ×2 (09:05→20:36)
[2021-07-18] MEDS: FERROUS SULFATE 325 MG TABLET PO SCH (09:06)
[2021-07-18] MEDS: CHLORHEXIDINE 0.12% ORAL RINSE 60 ML BOTTLE SWISH/SPIT SCH ×2 (09:25→20:40)
[2021-07-18] MEDS: ZALEPLON 5 MG CAPSULE PO PRN ×2 (20:36→22:36)
[2021-07-18] MEDS: ROSUVASTATIN 10 MG TABLET PO SCH (20:36)
[2021-07-19] MEDS: KETOROLAC 30 MG/1 ML VIAL IV SCH ×2 (02:01→08:42)
[2021-07-19 04:54] LABS: Basophils % 0.3 % (0.0-0.8); Eosinophils # 0.1 10*3/uL (0.0-0.87); Eosinophils % 1.5 % (0.00-10.9); Hematocrit 31.2 VOL% (42.0-52.0); Immature Granulocytes % 1.2 %; Immature Granulocytes Absolute 0.11 #; Lymphocytes # 1.5 10*3/uL (1.4-4.0); Lymphocytes % 16.3 % (21.2-54.2); Mean Corpuscular HGB Conc 32.1 GM/DL (32-36); Mean Corpuscular Volume 90.7 FL (87-102); Mean Platelet Volume 10.1 FL (9.6-12.0); Neutrophils % 71.7 % (38.7-73.9); Platelet Count 217 T/CUMM (130-400); Red Blood Count 3.44 MC/CUMM (3.8-5.5); Red Cell Distribution Width 12.9 % (9.3-17.3); White Blood Count 9.3 T/CUMM (4-12)
[2021-07-19 05:14] LABS: Alanine Aminotransferase 20 U/L (16-61); Albumin 2.1 G/DL (3.4-5.0); Alkaline Phosphatase 79 U/L (45-117); Aspartate Amino Transferase 20 U/L (0-37); Bilirubin,Indirect 0.5 MG/DL (0.0-1.0); Blood Urea Nitrogen 15 MG/DL (7-18); Calcium 7.5 MG/DL (8.5-10.1); Carbon Dioxide 25 MMOL/L (21-32); Estimated Glom Filtration Rate 128 ML/MIN; Glucose 162 MG/DL (74-106); Potassium 3.5 MMOL/L (3.5-5.1); Sodium 143 MMOL/L (136-145); Total Protein 5.3 G/DL (6.4-8.2)
[2021-07-19 06:06] LABS: Band Neutrophils 2 % (0-10); Eosinophils 1 % (0-10); Hypochromia 1+; Lymphocytes 13 % (20-55); Metamyelocytes 1 %; Myelocytes 1 %; Segmented Neutrophils 77 % (50-85); Total Cells Counted 100
[2021-07-19 06:07] LABS: Microcytosis 1+; Platelet Estimate Normal
[2021-07-19] MEDS: INSULIN LISPRO 100 UNIT/ML SUBCUT SCH ×2 (08:42→11:42)
[2021-07-19] MEDS: ASCORBIC ACID 500 MG TABLET PO SCH (08:43)
[2021-07-19] MEDS: VALSARTAN 80 MG TABLET PO SCH (08:43)
[2021-07-19] MEDS: METOPROLOL TARTRATE 25 MG TABLET PO SCH (08:43)
[2021-07-19] MEDS: FERROUS SULFATE 325 MG TABLET PO SCH (08:44)
[2021-07-19] MEDS: DOCUSATE SODIUM 100 MG CAPSULE PO SCH (08:44)
[2021-07-19] MEDS: metFORMIN 500 MG TABLET PO SCH (08:44)
[2021-07-19] MEDS: ASPIRIN EC 81 MG TABLET PO SCH (08:44)
[2021-07-19] MEDS: PANTOPRAZOLE 40 MG TABLET PO SCH (08:44)
[2021-07-19] MEDS: CHLORHEXIDINE 0.12% ORAL RINSE 60 ML BOTTLE SWISH/SPIT SCH (09:03)
[2021-07-19 11:49] VITALS: BP 107/57
== END 2021-07-19 12:45 | disposition home or self-care (01) | DRG 234 ==
LOC: N.ED 19:33 → SUATTDRO 20:52 → N.EDINP 20:52 → N.TELES 23:07 → N.ICU 07-11 11:55 → N.CVR 07-14 06:59 → N.TELES 07-15 11:52
PROVIDERS: ADMIT Internal Medicine; ATTEND Internal Medicine Cardiovascular Disease